=== PATIENT | male | born 1955 | race Caucasian/White ===

== ENCOUNTER 2021-03-02 15:28 | Emergency (ER) | payer MEDICAID, MEDICARE ==
[~2021-03-02] VITALS: Ht 170.2 cm; Wt 63.5 kg
[2021-03-02] MEDS ORDERED: THIAMINE HCL 100 MG TABLET PO ONE (15:45)
[2021-03-02] MEDS ORDERED: IV NORMAL SALINE 1000 ML BAG IV ONE (15:45)
[2021-03-02 16:19] LABS: HEMATOCRIT 43.7 % (36.7-47.1); MEAN CORPUSCULAR VOLUME 101.1 fL (73.0-96.2); PLATELET COUNT (AUTO) 229 K/uL (152-348)
[2021-03-02 16:29] LABS: CARBON DIOXIDE 30 mmol/L (21-32); CHLORIDE 102 mmol/L (98-107); CREATININE 0.7 mg/dL (0.6-1.3); GLUCOSE 97 mg/dL (74-106); POTASSIUM 3.9 mmol/L (3.5-5.1); UREA NITROGEN, BLOOD 18 mg/dL (7-18)
[2021-03-02 16:30] LABS: ETHANOL 287 MG/DL (0-0)
[2021-03-02 16:35] LABS: ALANINE AMINOTRANSFERASE 67 U/L (16-63); ALKALINE PHOSPHATASE 76 U/L (50-136); ASPARTATE AMINOTRANSFERASE 103 U/L (15-37); BILIRUBIN,DIRECT 0.2 mg/dL (0.0-0.2); BILIRUBIN,TOTAL 0.5 mg/dL (0.2-1.0); TOTAL PROTEIN, SERUM 7.5 g/dL (6.4-8.2)
[2021-03-02 16:36] LABS: ACETAMINOPHEN < 2.0 ug/mL (10-30)
[2021-03-02] MEDS ORDERED: THIAMINE HCL 100 MG TABLET ONE (17:46)
--- NOTE | 2021-03-02 19:20 | NUR ---
pt awake, axox4, walks in steady gait. pt says wants to go home.
== END 2021-03-02 19:23 | disposition left against medical advice (07) ==
LOC: ER 15:28
DX: T51.0X1A Toxic effect of ethanol, accidental (unintentional), initial encounter (principal); G92.8 Other toxic encephalopathy; Y92.480 Sidewalk as the place of occurrence of the external cause; Z59.02 Unsheltered homelessness; M50.323 Other cervical disc degeneration at C6-C7 level; M48.02 Spinal stenosis, cervical region; I45.2 Bifascicular block
CPT/HCPCS: 36415; 70450; 71045; 72125; 85025; 93005; A4663; G0480; J7030